=== PATIENT | male | born 1960 | race Caucasian/White ===

== ENCOUNTER 2022-10-07 17:43 | Emergency (ER) | payer MEDICAID ==
[~2022-10-07] VITALS: Ht 170.2 cm; Wt 83.9 kg
[~2022-10-07 17:43] MED LIST: ACET325T53 PO; ARIP10TA9 PO; DIVA500T2 PO; MAG-151; PHE25 IVP; PHE25 PO; TRAZ-250 PO; VIS50 PO
[2022-10-07 19:24] VITALS: BP_SYST 142
--- NOTE | 2022-10-07 19:24 | NUR ---
Patient to ER bed 8 for evaluation. Side rails up. Report given to [place]
--- NOTE | 2022-10-07 20:00 | NUR ---
PT BIB SELF FROM HOME. CC SPIDER BITE. PT C/O ABSESS TO LEFT LATERAL THIGH. 8/10 PAIN. REDNESS NO DRAINAGE. PT IS AFEBRILE.
--- NOTE | 2022-10-07 20:35 | NUR ---
I and D by Dr Xiao ongoing at bedside
[2022-10-07] MEDS ORDERED: CEPH-548 PO (20:52)
[2022-10-07] MEDS ORDERED: SULF1TAB48 PO (20:52)
[2022-10-07 22:29] VITALS: BP_SYST 142
--- NOTE | 2022-10-07 22:30 | NUR ---
Patient given written and verbal discharge instructions and verbalizes understanding. ER MD discussed with patient the results and treatment provided. Patient in stable condition. ID arm band removed. Patient educated on pain management and to follow up with PMD. Opportunity for questions provided and answered. Medication side effect fact sheet provided.
== END 2022-10-07 22:29 | disposition home or self-care (01) ==
LOC: SED 17:43
DX: L02.416 Cutaneous abscess of left lower limb (principal); L03.116 Cellulitis of left lower limb; R22.42 Localized swelling, mass and lump, left lower limb; Z79.899 Other long term (current) drug therapy
CPT/HCPCS: 99284

== ENCOUNTER 2022-10-11 10:51 | Emergency (ER) | payer MEDICAID ==
[~2022-10-11] VITALS: Ht 172.7 cm; Wt 70.8 kg
[~2022-10-11 10:51] MED LIST changes: +CEPH-548 PO; +SULF1TAB48 PO
--- NOTE | 2022-10-11 11:09 | NUR ---
ER at bedside examining patient.
[2022-10-11 11:17] VITALS: BP_SYST 131
--- NOTE | 2022-10-11 11:53 | NUR ---
PATIENT [id number] AMBULATORY TO ER WITH ABCESS TO LEFT THIGH AREA, EDP DRAINNED THE ABCESS AND D/C PATIENT HOME WITH INSTRUCTION.
--- NOTE | 2022-10-11 11:54 | NUR ---
Patient given written and verbal discharge instructions and verbalizes understanding. ER MD discussed with patient the results and treatment provided. Patient in stable condition. ID arm band removed. IV catheter removed intact and dressing applied, no active bleeding. Rx of given. Patient educated on pain management and to follow up with PMD. Pain Scale . Opportunity for questions provided and answered. Medication side effect fact sheet provided.
== END 2022-10-11 11:54 | disposition home or self-care (01) ==
LOC: SED 10:51
DX: Z48.00 Encounter for change or removal of nonsurgical wound dressing (principal); Z79.899 Other long term (current) drug therapy
CPT/HCPCS: 99281; J7060